=== PATIENT | female | born 1975 | race African-American/Black ===

== ENCOUNTER 2020-03-18 10:46 | Emergency (ER) | payer OTHER ==
[~2020-03-18] VITALS: Ht 162.6 cm; Wt 104.5 kg
[2020-03-18 15:40] VITALS: BP 120/78
== END 2020-03-18 15:40 | disposition home or self-care (01) ==
LOC: ER 11:08
DX: R05 Cough (principal)
CPT/HCPCS: 71045; 99283; Z7610